=== PATIENT | female | born 1985 | race African-American/Black ===

== ENCOUNTER 2019-03-27 00:16 | Emergency (ER) | payer MEDICAID, OTHER ==
[~2019-03-27] VITALS: Ht 175.3 cm; Wt 77.1 kg
[2019-03-27] MEDS ORDERED: ALBUTEROL SULF 2.5 MG/0.5ML(0.5%) NEB SOLN NEB ONE (05:15)
[2019-03-27] MEDS ORDERED: IPRATROPIUM BROM 0.5 MG/2.5ML INH SOL NEB ONE (05:15)
[2019-03-27 05:36] LABS: Hemoglobin 7.8 g/dL (12.2-16.2)
[2019-03-27 05:42] LABS: Mean Corpuscular Hemoglobin 18.1 pg (28.0-32.0); Mean Corpuscular Hgb Conc. 29.9 g/dL (32.0-36.0); Mean Corpuscular Volume 60.5 fL (80.0-100.0); Platelet Count (auto) 314 10^3/uL (140-450); Red Blood Cells 4.29 10^6/uL (4.0-5.20)
[2019-03-27 05:57] LABS: Albumin 3.4 g/dL (3.4-5.0); Calcium 8.6 mg/dL (8.5-10.1); Potassium 3.4 mmol/L (3.5-5.1)
[2019-03-27 05:58] LABS: Band Neutrophils % (manual) 0; Basophils % (manual) 0 (0.0-2.0); Blast Cells 0; Metamyelocytes % 0; Myelocytes % 0; Promyelocytes % 0; Reactive Lymphocytes 0
[2019-03-27 06:02] LABS: BUN/Creatinine Ratio 18.5; Bilirubin, Total 0.4 mg/dL (0.2-1.0); Total Protein 7.2 g/dL (6.4-8.2)
[2019-03-27 07:27] LABS: Eosinophils % (manual) 1 (0-7); Lymphocytes % (manual) 41 (10.0-50.0); Monocytes % (manual) 7 (0-12)
[2019-03-27 07:40] VITALS: BP 117/77
== END 2019-03-27 08:15 | disposition home or self-care (01) ==
LOC: ER 00:16 → EDBD 00:16 → ER 08:15
DX: K56.7 Ileus, unspecified (principal); K59.00 Constipation, unspecified; K59.2 Neurogenic bowel, not elsewhere classified
CPT/HCPCS: 36415; 71250; 74176; 80053; 82150; 83690; 85007; 85027; 94640; 99284; J7611; J7644